=== PATIENT | male | born 1965 | race African-American/Black ===

== ENCOUNTER 2022-10-29 07:56 | Emergency (ER) | payer MEDICAID ==
[~2022-10-29] VITALS: Ht 172.7 cm; Wt 88.0 kg
[2022-10-29 08:07] VITALS: BP 115/77
== END 2022-10-29 11:06 | disposition home or self-care (01) ==
LOC: ER 07:56
DX: Z48.02 Encounter for removal of sutures (principal); Z98.890 Other specified postprocedural states
CPT/HCPCS: 99281